=== PATIENT | female | born 1995 | race Caucasian/White ===

== ENCOUNTER 2018-08-18 15:42 | Emergency (ER) | payer OTHER, BC ==
--- NOTE | 2018-08-18 15:49 | UC ---
Abdominal Pain Female HPI - HPI Summary HPI Summary: 22 yo female presents with multiple complaints. She is a PhD student at [employer]. 1) For the past 3 weeks she has been feeling that her heart is beating "harder" intermittently lasting minutes up to an hour at a time. This occurs randomly and at any time of the day. Not worse with activity. No accompanied symptoms such as SOB, pain, headache, or dizziness. 2) This morning she felt some RLQ pain for a couple of hours that has now resolved. She tells me that she has a history of ovarian cysts and is on control for this. She gets her menstrual period monthly, but last month had 7 days of heavy bleeding followed by 1 day of rest followed by 7 more days of heavy bleeding. This has never happened to her before. Has had no bleeding since. 3) Ongoing diarrhea and increased flatulence. She is seeing GI for this and, per pt, they are trying many different treatments with her. She reports no change as of yet. Currently denies headache, dizziness, SOB, chest pain, palpitations, n/v, dysuria, vaginal bleeding or discharge, flank pain, or weakness. She denies anxiety, depression, or increased stress. No SI/HI. No recent travel, personal or fam hx of blood clots. - History of Current Complaint Stated Complaint: HARD HEART BEAT, AND EXCESS GAS PRODUCTION Time Seen by Provider: 08/18/18 15:48 Hx Obtained From: Patient Onset/Duration: Gradual Onset Timing: Intermittent Episodes Lasting: Severity Currently: None Allergies/Adverse Reactions: Allergies Allergy/AdvReac Type Severity Reaction Status Date / Time No Known Allergies Allergy Verified 08/18/18 16:09 Home Medications: Home Medications RiFAXimin* [Xifaxan*] 1 tab PO TID 08/18/18 [History Confirmed 08/18/18] Trilomarzia* 1 tab PO DAILY 08/18/18 [History Confirmed 08/18/18] PMH/Surg Hx/FS Hx/Imm Hx - Additional Past Medical History Additional PMH: IBS - Surgical History Surgical History: None - Family History Known Family History: Positive: Other - Crohn's - Social History Occupation: Student Alcohol Use: None Substance Use Type: None Smoking Status (MU): Never Smoked Tobacco Review of Systems All Other Systems Reviewed And Are Negative: Yes Constitutional: Positive: Negative Skin: Positive: Negative Eyes: Positive: Negative ENT: Positive: Negative Respiratory: Positive: Negative Cardiovascular: Positive: Other - heart beating "harder" Gastrointestinal: Positive: Other - RLQ pain Genitourinary: Positive: Abnormal Bleeding Neurovascular: Positive: Negative Musculoskeletal: Positive: Negative Neurological: Positive: Negative Psychological: Positive: Negative Physical Exam - Summary Physical Exam Summary: GENERAL: NAD. WDWN. No pain distress. SKIN: No rashes, sores, lesions, or open wounds. NECK: Supple. Nontender. No lymphadenopathy. CHEST: CTAB. No r/r/w. No accessory muscle use. Breathing comfortably and in no distress. CV: RRR. Without m/r/g. Pulses intact. Cap refill <2seconds ABDOMEN: Soft. NTTP. No distention or guarding. No organomegaly. No CVA tenderness. Bowel sounds present NEURO: Alert. PSYCH: Age appropriate behavior. Triage Information Reviewed: Yes Vital Signs: Vital Signs: Temp Pulse Resp BP Pulse Ox 98.3 F 56 16 105/67 100 08/18/18 16:03 08/18/18 16:03 08/18/18 16:03 08/18/18 16:03 08/18/18 16:03 Laboratory Tests 08/18/18 08/18/18 16:31 16:33 POC Urine Color Yellow POC Urine Clarity Clear POC Urine pH 7.5 POC Ur Specif [place] 1.020 POC Urine Protein Negative POC Ur Glucose (UA) Negative POC Urine Ketones Negative POC Urine Blood Negative POC Urine Nitrite Negative POC Urine Bilirubin Negative POC Urine Urobilinogen 0.2 POC U Leukocyte Esteras Negative POC Ur Test Negative Vital Signs Reviewed: Yes Abd Pain Female Course/Dx - Course Course Of Treatment: EKG: Sinus john 54bpm. No ST changes as read by Dr. Duckworth. UA and negative. I recommended the pt seek f/u care at [facility] or at [facility] for further evaluation of her ?cardiac symptoms and abnormal vaginal bleeding. I obtained labwork today, but I believe the majority of her symptoms are anxiety/stress related - but pt denies this. If her symptoms worsen or become more persistent - advised to go to the ED for further evaluation. Pt voiced understanding and is agreeable to the plan. - Differential Dx/Diagnosis Provider Diagnosis: Pounding heartbeat, Menorrhagia Discharge - Sign-Out/Discharge Documenting (check all that apply): Patient Departure All imaging exams completed and their final reports reviewed: No Studies - Discharge Plan Condition: Stable Disposition: HOME Referrals: No Primary Care Phys,NOPCP [Primary Care Provider] - [facility] [Outside] - 1 Week Additional Instructions: If you develop a fever, shortness of breath, chest pain, new or worsening symptoms - please call your PCP or go to the ED. Your exam was normal today. We have drawn blood work to further evaluate your symptoms. Please call [facility] at the number below to schedule a follow up appointment next week to review your labwork and to further evaluate your symptoms. - Billing Disposition and Condition Condition: STABLE Disposition: Home
--- OUTSIDE RECORDS SUMMARY | 2018-08-18 15:49 | XMS REPORT | Continuity of Care Document ---
:1995 External Reference #:[id number] Author Name Karlene Ochoa PA-C Address [address] [place] [address] Care Team Providers Name Role Phone Li Poole RPA Care Team Information Spindle Maker Unavailable Li Poole RPA Primary Care Physician Unavailable Payers Type Date Identification Numbers Payment Provider Subscriber Policy Number: [id number] [facility] Renea Armijo PayID: [id number] [address] [place] [address] Policy Number: [id number] [facility] Renea Armijo PayID: [id number] [address] [address] [place] [address] Advance Directives Description No Information Available Problems Date Description Provider Status Onset: 06/29/2018 Flatulence, eructation and gas Karlene Ochoa PA-C Active pain Onset: 06/29/2018 Diarrhea Karlene Ochoa PA-C Active Family History Date Family Member(s) Problem(s) Comments Mother Celiac Disease Social History Type Date Description Comments Sex Unknown Tobacco Use Start: Unknown Patient has never smoked Smoking Status Reviewed: 08/03/18 Patient has never smoked Allergies, Adverse Reactions, Alerts Date Description Reaction Status Severity Comments 06/29/2018 Sulfa Antibiotics Active Medications Medication Date Status Form Strength Qnty SIG Indications Ordering Provider Xifaxan Active Tablets 550mg 42tabs 1 tablet R19.7 Tito 019 by mouth Tonya, DO 3 times daily for 14 days Biq-Ly-Ihtlhe /0 Active Tablets 0.18/0.215/ Unknown 000 0.25 mg-25 mcg Immunizations Description No Information Available Vital Signs Date Vital Result Comment 08/03/2018 8:16am Height 67.75 inches 5'7.75" Weight 128.00 lb BMI (Body Mass Index) 19.6 kg/m2 06/29/2018 2:06pm Height 67.75 inches 5'7.75" Weight 131.00 lb BP Systolic 98 mmHg BP Diastolic 64 mmHg BMI (Body Mass Index) 20.1 kg/m2 Results Test Date Facility Test Result H/L Range Note Laboratory test [facility] Breath Test NEGATIVE finding [address] [place]) [place] [address] [phone] Laboratory test [facility] Stool SEE RESULT 1, 2 finding 8 Culture BELOW C Difficile PCR SEE RESULT BELOW 3 Stool Occult 07/01/2018 [facility] Stool Occult SEE RESULT 4 Blood Diag Blood, Diag BELOW Laboratory test 06/29/2018 [facility] Esr Sedimentation 07 MM 0-20 finding [address] Rate(!) [place] [address] [phone] C-Reative Protein <0.5 <5.0 Celiac 2! 06/29/2018 [facility] [place]oglobulin A (Iga) 143 mg/dL 61 - 356 5 Tissue Transglutamianse Iga AB 1.2 U/mL 6 1 [id number] 2 SEE RESULT BELOW Name: RENEA ARMIJO : [address]: Karlene DELUCA Acct: [id number] Unit: [id number] AGE: 22 Location: [facility] Re07/01/18 SEX: F Status: REG REF SPEC: [id number] PJ: 07/01/18-1430 [facility] DR: Karlene DELUCA REQ: [id number] RECD: 07/01/18 STATUS: RES _ SOURCE: STOOL SPDESC: ORDERED: Occult Bl, Diag, Stool Culture, Fecal Lactoferr, O P: Giar/Crypt COMMENTS: [id number] Procedure Result Reported Site Stool Culture PENDING Stool Specimen Description Final 07/01/18- 2014 ML Stool Color Brown Stool Form Formed Stool Consistency Firm Shiga Toxin 1 2 PENDING Fecal Lactoferrin (Stool WBC) PENDING Stool Occult Blood (1) PENDING O P: Giardia/Cryptospor Screen PENDING * ML - Main Lab . END OF REPORT DEPARTMENT OF PATHOLOGY, [address] [place] [address] Sanjay Amos M.D. Director [facility] # [id number] 3 SEE RESULT BELOW Name: RENEA ARMIJO : [address]: Karlene DELUCA Acct: [id number] Unit: [id number] AGE: 22 Location: [facility] Re07/01/18 SEX: F Status: REG REF SPEC: [id number] PJ: 07/01/180 [facility] DR: Karlene DELUCA REQ: [id number] RECD: 07/01/18 STATUS: RES _ SOURCE: STOOL SPDESC: ORDERED: Occult Bl, Diag/R, C. diff PCR/S, Stool Culture/R, Fecal Lactoferr/ R, O P: Sameer/Crypt/R COMMENTS: [id number] Procedure Result Reported Site Stool Culture PENDING Stool Specimen Description Final 07/01/18- 2014 ML Stool Color Brown Stool Form Formed Stool Consistency Firm Shiga Toxin 1 2 PENDING C. difficile PCR PENDING Fecal Lactoferrin (Stool WBC) PENDING Stool Occult Blood (1) PENDING O P: Giardia/Cryptospor Screen PENDING * ML - Main Lab . END OF REPORT DEPARTMENT OF PATHOLOGY, [address] [place] [address] Sanjay Amos M.D. Director [facility] # [id number] 4 SEE RESULT BELOW Name: RENEA ARMIJO : [address]: Karlene DELUCA Acct: [id number] Unit: [id number] AGE: 22 Location: [facility] Re07/01/18 SEX: F Status: REG REF SPEC: [id number] PJ: 07/01/18-1430 [facility] DR: Karlene DELCUA REQ: [id number] RECD: 07/01/18 STATUS: COMP _ SOURCE: STOOL SPDESC: ORDERED: Occult Bl, Diag, Stool Culture, Fecal Lactoferr, O P: Giar/Crypt COMMENTS: [id number] Verbal to ANGIE HENRY by [id number] at 0920 on 07/04/18. Results read back accurately. Procedure Result Reported Site Stool Culture Final 07/03/18- 1219 ML Result No enteric pathogens isolated Testing for Salmonella, Shigella, Aeromonas, Plesiomonas, Yersinia and Campylobacter are included in a Stool Culture. Vibrio spp not routinely tested for in a stool culture. If testing is desired, please request specifically when placing test order. Sensitivities not routinely performed on stool isolates, as antibiotics may prolong the carriage rate of bacteria. Please contact the microbiology lab if sensitivities are required. Stool Specimen Description Final 07/01/18- 2014 ML Stool Color Brown Stool Form Formed Stool Consistency Firm Shiga Toxin 1 2 Final 07/04/18- 1134 ML Organism 1 Negative Shiga Toxin 1 2 Immunochromatographic Assay CONTINUED ON NEXT PAGE DEPARTMENT OF PATHOLOGY, [address] [place] [address] Sanjay Amos M.D. Director [facility] # [id number] Patient: RENEA ARMIJO [id number] (Continued) Specimen: [id number] Collected: 07/01/18-1429 Received: 07/01/18-1807 (Continued) Procedure Result Reported Site Shiga Toxin 1 2 Final (continued) 07/04/18- 1134 Fecal Lactoferrin (Stool WBC) Final 07/01/18- 2316 ML Fecal Lactoferrin Negative by Immunoassay TEST LIMITATIONS: Assay detects elevated levels of lactoferrin released from fecal leukocytes as a marker of intestinal inflammation. The test may not be appropriate in immunocompromised persons. Fecal samples from breast fed infants should not be used with this assay. Stool Occult Blood (1) Final 07/01/18- 2136 ML Stool Occult Blood Negative Collection Date (1) 07/01/18 O P: Giardia/Cryptospor Screen Final 07/04/18- 1117 ML Organism 1 Neg Cryptosporidium/Giardia Giardia and cryptosporidium antigen testing performed by enzyme immunoassay. If patient is immunocompromised or has traveled to or is from a developing country, a full ova and parasite exam with microscopic (OPMIC) is recommended. All samples will be held 21 days in case full ova and parasite testing is requested. Contact the Microbiology Department at [phone]. TEST LIMITATIONS: As with all diagnostic procedures, the results obtained should be used in conjunction with other clinical information available the physician, including confirmation by another method. Negative results can occur in samples containing antigen below lower limits of detection of the assay. One negative specimen does not rule out the possibility of a parasitic infection. To improve detection it is recommended that three specimens be collected on separate days over a period of not more than seven CONTINUED ON NEXT PAGE DEPARTMENT OF PATHOLOGY, [address] [place] [address] Sanjay Amos M.D. Director [facility] # [id number] Patient: RENEA ARMIJO [id number] (Continued) Specimen: [id number] Collected: 07/01/18-1430 Received: 07/01/18-1807 (Continued) Procedure Result Reported Site O P: Giardia/Cryptospor Screen Final (continued) 07/04/18- 1117 days. The use of colonic washes, aspirates or other diluted sample types has not been established and could affect the performance of the assay. Stool samples contaminated with an oily or particulate base (eg. Barium, mineral oil etc.) could interfere with the test and are not recommended. * ML - [facility] . END OF REPORT DEPARTMENT OF PATHOLOGY, [address] [place] [address] Sanjay Amos M.D. Director [facility] # [id number] 5 Test Performed by: [facility] - [address] [address] 6 REFERENCE VALUE <4.0 (Negative) Test Performed by: [facility] - [address] [address] Procedures Date Code Description Status 07/18/2018 [address] Breath Hydrogen Completed Encounters Type Date Location Provider Dx Diagnosis Office Visit 06/29/2018 [facility] Karlene Murillo R19.7 Diarrhea, 2:[facility]-C unspecified R14.3 Flatulence R14.0 Abdominal distension (gaseous) Plan of Treatment 08/03/2018 - GEORGES ContrerasCR19.7 Diarrhea, unspecifiedNew Medication :Xifaxan 550 mg - 1 tablet by mouth 3 times daily for 14 daysR14.0 Abdominal distension (gaseous)
[2018-08-18 16:07] VITALS: BP 105/67
[2018-08-18] MEDS ORDERED: Lidocaine 1%* 5 ML VIAL INJ ONE (16:52)
[2018-08-18 18:59] LABS: ABS Basophils 0 10^3/ul (0-0.2); ABS Eosinophils 0.4 10^3/ul (0-0.6); ABS Lymphocytes 1.6 10^3/ul (1.0-4.8); ABS Monocytes 0.4 10^3/ul (0-0.8); ABS Neutrophils 3.2 10^3/ul (1.5-7.7); ABS Nucleated RBC 0 10^3/ul; Eosinophil % 6.5 %; Hematocrit 41 % (35-47); Hemoglobin 13.7 g/dl (12.0-16.0); Lymphocyte % 28.5 %; Mean Corpuscular HGB Conc 34 g/dl (31-36); Mean Corpuscular Hemoglobin 30 pg (27-31); Mean Corpuscular Volume 90 fL (80-97); Mean Platelet Volume 9.4 fL (7.4-10.4); Nucleated Red Blood Cells % 0; Platelet Count 211 10^3/ul (150-450); Red Cell Distribution Width 13 % (10.5-15); White Blood Count 5.5 10^3/ul (3.5-10.8)
[2018-08-20 07:01] LABS: Calcium 10.1 mg/dL (8.6-10.3); Magnesium 2.5 mg/dL (1.9-2.7); Total Bilirubin 0.5 mg/dL (0.2-1.0)
[2018-08-20 07:07] LABS: Albumin/Globulin Ratio 1.6 (1-3); BUN/Creatinine Ratio 25.5 (8-20); EGFR Non-African American 70.3 (>60); Globulin 3.1 g/dL (2-4); Total Protein 8.1 g/dL (6.4-8.9)
[2018-08-21 16:52] LABS: Lyme Disease Serology Positive (Negative)
[2018-08-22 16:42] LABS: Lyme Disease IgG Ab WB Negative (Negative); Lyme Disease IgG Bands Present p66 kDa
== END 2018-08-18 16:50 | disposition home or self-care (01) ==
LOC: UCEAST 15:42
DX: I49.9 Cardiac arrhythmia, unspecified (principal); N92.0 Excessive and frequent menstruation with regular cycle
CPT/HCPCS: 36415; 80053; 81003; 83735; 84443; 84702; 85025; 86617; 86618; 99211; G0463

== ENCOUNTER 2018-11-28 12:30 | Emergency (ER) | payer OTHER, BC ==
--- OUTSIDE RECORDS SUMMARY | 2018-11-28 12:35 | XMS REPORT | Continuity of Care Document ---
:1995 External Reference #:[id number] Author Name Karlene Ochoa PA-C Address [address] [place] [address] Care Team Providers Name Role Phone Li Poole RPA Care Team Information Dental Chair Assembler Unavailable Li Poole RPA Primary Care Physician Unavailable Payers Date Identification Numbers Payment Provider Subscriber Policy Number: [id number] [facility] Renea Armijo PayID: [id number] [address] [place] [address] Policy Number: [id number] [facility] BULL Barnardana Armijo PayID: [id number] [address] [address] [place] [address] Advance Directives Description No Information Available Problems Active Problems Provider Date Diarrhea Karlene Ochoa PA-C Onset: 06/29/2018 Flatulence, eructation and gas pain Karlene Ochoa PA-C Onset: 2017 Family History Date Family Member(s) Observation Comments Mother Celiac Disease Social History Type Date Description Comments Sex Unknown Tobacco Use Start: Unknown Patient has never smoked Smoking Status Reviewed: 10/17/18 Patient has never smoked Allergies, Adverse Reactions, Alerts Active Allergies Reaction Severity Comments Date Sulfa Antibiotics 06/29/2018 Medications Active Medications SIG Qnty Indications Ordering Provider Date Lillow Unknown 0.15-30mg-mcg Tablets History Medications Colyte With by mouth as 4000ml Torrie Daly, 08/19/2018 - Flavor Packs directed 10/17/2018 240gm Solution Rec Xifaxan 1 tablet by mouth 42tabs R19.7 Tito Castaneda, 08/03/2018 - 550mg 3 times daily for 10/17/2018 Tablets 14 days [id number]-[id number] Unknown - 10/17/2018 0.18/0.215/0.25 mg-25 mcg Tablets Immunizations Description No Information Available Vital Signs Date Vital Result Comment 10/17/2018 9:12am Height 67.75 inches 5'7.75" Weight 128.00 lb BMI (Body Mass Index) 19.6 kg/m2 08/03/2018 8:16am Height 67.75 inches 5'7.75" Weight 128.00 lb BMI (Body Mass Index) 19.6 kg/m2 06/29/2018 2:06pm Height 67.75 inches 5'7.75" Weight 131.00 lb BP Systolic 98 mmHg BP Diastolic 64 mmHg BMI (Body Mass Index) 20.1 kg/m2 Results Test Date Facility Test Result H/L Range Note Laboratory test [facility] Breath Test NEGATIVE finding [address] [place] [address] ([facility]) [phone] Laboratory test [facility] Breath Test NEGATIVE Neg finding [address] [facility] [place] [address] ([facility]) [phone] Laboratory test [facility] Clotest SEE RESULT 1, 2 finding 9 BELOW Laboratory test [facility] Surgical SEE RESULT 3, 4 finding 9 Interface BELOW Order Laboratory test [facility] Breath Test NEGATIVE finding [address] [place] [facility] Sbbo (Gai) [place], [place] [address] [phone] Laboratory test [facility] Stool Culture SEE RESULT 5, 6 finding 8 BELOW C Difficile PCR SEE RESULT BELOW 7 Stool Occult 07/01/2018 [facility] Stool Occult SEE RESULT 8 Blood Diag Blood, Diag BELOW Laboratory test 06/29/2018 [facility] Esr Sedimentation 07 MM 0-[address] Rate(!) [place], [place] [id number] [phone] C-Reative Protein <0.5 <5.0 Celiac 2! 06/29/2018 [facility] Immunoglobulin A (Iga) 143 mg/dL 61 - 356 9 Tissue Transglutamianse Iga AB 1.2 U/mL 10 1 [id number] SEE RESULT BELOW Name: RENEA ARMIJO : [address]: Torrie Daly MD Acct: [id number] Unit: [id number] AGE: 22 Location: [facility] Re09/15/18 SEX: F Status: DEP REF SPEC: [id number] PJ: 09/15/18-[address]: Torrie Nava MD REQ: [id number] RECD: 09/15/18 STATUS: JAMAR JULIAN DR: [facility] _ SOURCE: GAS ANTRUM SPDESC: ORDERED: Clotest COMMENTS: [id number] Procedure Result Reported Site Clotest Final 09/16/18- 741 ML Clotest Negative * ML - Main Lab . END OF REPORT DEPARTMENT OF PATHOLOGY, [address] [place] [address] Sanjay Amos M.D. Director [facility] # [id number] 3 [id number] SEE RESULT BELOW Name: RENEA ARMIJO : [address]: Torrie Daly MD Acct: [id number] Unit: [id number] AGE: 22 Location: [facility] Re09/15/18 SEX: F Status: DEP REF SPEC: [id number] PJ: 09/15/18-[address]: Torrie Nava MD REQ: [id number] RECD: 09/15/18 STATUS: GREGORIO JULIAN DR: Crystal L Poole, RPA-C _ ORDERED: LEVEL 4/3 COMMENTS: [id number] FINAL DIAGNOSIS 1. Duodenum, biopsy: -- Benign small intestinal mucosa with no significant pathologic abnormalities. -- No evidence of villous blunting or increased intraepithelial lymphocytes. 2. Gastroesophageal junction, biopsy: -- Benign columnar-type mucosa with chronic inflammation. -- Intestinal metaplasia is absent. -- Dysplasia is absent. 3. Colon, random, biopsy: -- Benign colonic mucosa with no significant pathologic abnormalities. -- No evidence of microscopic colitis. CLINICAL HISTORY Diarrhea POST-OPERATIVE DIAGNOSIS EGD: esophagus - normal, tubular esophagus; mildly irregular gastroesophageal junction at 36 cm with focal erythema - biopsy; normal stomach, ROSALINDA test; duodenum normal, biopsy; colonoscopy: to terminal ileum; good prep; normal; random biopsy CONTINUED ON NEXT PAGE DEPARTMENT OF PATHOLOGY, [address] [place] [address] Sanjay Amos M.D. Director [facility] # [id number] RUN DATE: 09/16/18 [facility] LAB LIVE PAGE 2 Patient: RENEA ARMIJO [id number] (Continued) GROSS DESCRIPTION (Continued) GROSS DESCRIPTION 1. The specimen is received in formalin labeled, Duodenal Biopsies, and consists of a 0.7 x 0.5 x 0.2 cm aggregate of cobos-pink irregular soft tissue fragments which is submitted entirely in one cassette. 2. The specimen is received in formalin labeled, GE Junction Biopsies, and consists of a 0.5 x 0.3 x 0.1 cm cobos-pink irregular soft tissue fragment which is submitted entirely in one cassette. 3. The specimen is received in formalin labeled, Random Colon Biopsies, and consists of a 0.7 x 0.5 x 0.2 cm aggregate of cobos-pink irregular soft tissue fragments which is submitted entirely in one cassette. Signed by and Reported on: Stephania Benitez MD 09/16/18 1205 END OF REPORT DEPARTMENT OF PATHOLOGY, [address] [place] [address] Sanjay Amos M.D. Director [facility] # [id number] 5 [id number] 6 SEE RESULT BELOW Name: RENEA ARMIJO : [address]: Karlene DELUCA Acct: [id number] Unit: [id number] AGE: 22 Location: [facility] Re07/01/18 SEX: F Status: REG REF SPEC: [id number] PJ: 07/01/18-[address] [facility] [address]: Karlene DELUCA REQ: [id number] RECD: 07/01/18 STATUS: RES _ SOURCE: STOOL SPDESC: ORDERED: Occult Bl, Diag, Stool Culture, Fecal Lactoferr, O P: Giar/Crypt COMMENTS: [id number] Procedure Result Reported Site Stool Culture PENDING Stool Specimen Description Final 07/01/18- 2014 ML Stool Color Brown Stool Form Formed Stool Consistency Firm Shiga Toxin 1 2 PENDING Fecal Lactoferrin (Stool WBC) PENDING Stool Occult Blood (1) PENDING O P: Giardia/Cryptospor Screen PENDING * ML - Main Lab . END OF REPORT DEPARTMENT OF PATHOLOGY, [address] [place] [address] Sanjay Amos M.D. Director [facility] # [id number] 7 SEE RESULT BELOW Name: RENEA ARMIJO : [address]: Karlene DELUCA Acct: [id number] Unit: [id number] AGE: 22 Location: [facility] Re07/01/18 SEX: F Status: REG REF SPEC: [id number] PJ: 07/01/18-[address] [facility] [address]: Karlene DELUCA REQ: [id number] RECD: 07/01/18 STATUS: RES _ SOURCE: STOOL SPDESC: ORDERED: Occult Bl, Diag/R, C. diff PCR/S, Stool Culture/R, Fecal Lactoferr/ R, O P: Giar/Crypt/R COMMENTS: [id number] Procedure Result Reported Site Stool Culture PENDING Stool Specimen Description Final 07/01/18- 2014 ML Stool Color Brown Stool Form Formed Stool Consistency Firm Shiga Toxin 1 2 PENDING C. difficile PCR PENDING Fecal Lactoferrin (Stool WBC) PENDING Stool Occult Blood (1) PENDING O P: Giardia/Cryptospor Screen PENDING * ML - Main Lab . END OF REPORT DEPARTMENT OF PATHOLOGY, [address] [place] [address] Sanjay Amos M.D. Director [facility] # [id number] 8 SEE RESULT BELOW Name: RENEA ARMIJO : [address]: Karlene DELUCA Acct: [id number] Unit: [id number] AGE: 22 Location: [facility] Re07/01/18 SEX: F Status: REG REF SPEC: [id number] PJ: 07/01/18-[address] [facility] [address]: Karlene DELUCA REQ: [id number] RECD: 07/01/18 STATUS: COMP _ SOURCE: STOOL SPDESC: ORDERED: Occult Bl, Diag, Stool Culture, Fecal Lactoferr, O P: Giar/Crypt COMMENTS: [id number] Verbal to ANGIE HENRY by [id number] at 0920 on 07/04/18. Results read back [...] are required. Stool Specimen Description Final 07/01/18- 2015 ML Stool Color Brown Stool Form Formed Stool Consistency Firm Shiga Toxin 1 2 Final 07/04/18- 1134 ML Organism 1 Negative Shiga Toxin 1 2 Immunochromatographic Assay CONTINUED ON NEXT PAGE DEPARTMENT OF PATHOLOGY, [address] [place] [address] Sanjay Amos M.D. Director [facility] # [id number] Patient: RENEA ARMIJO [id number] (Continued) Specimen: [id number] Collected: 07/01/18 Received: 07/01/18 (Continued) Procedure Result Reported Site Shiga Toxin [...] is requested. Contact the Microbiology Department at [phone]. TEST LIMITATIONS: As with all diagnostic procedures, [...] CONTINUED ON NEXT PAGE DEPARTMENT OF PATHOLOGY, [address] [place] [address] Sanjay Amos M.D. Director [facility] # [id number] Patient: RENEA ARMIJO [id number] (Continued) Specimen: [id number] Collected: 07/01/18-1429 Received: 07/01/18 (Continued) Procedure Result Reported Site O P: Giardia/Cryptospor Screen Final (continued) 07/04/18- 1117 days. The use of colonic washes, aspirates or other diluted sample types has not been established and could affect the performance of the assay. Stool samples contaminated with an oily or particulate base (eg. Barium, mineral oil etc.) could interfere with the test and are not recommended. * - Main Lab . END OF REPORT DEPARTMENT OF PATHOLOGY, [address] [place] [address] Sanjay Amos M.D. Director [facility] # [id number] 9 Test Performed by: [facility] [address] [place] [address] 10 REFERENCE VALUE <4.0 (Negative) Test Performed by: [facility] [address] [place] [address] Procedures Date Code Description Status 11/09/2018 28495 Breath Hydrogen Completed 10/26/2018 46756 Breath Hydrogen Completed 09/15/2018 92475 Moderate Sedation Services; Same Phys Each Additional 15 Completed Mins 09/15/2018 68444 Moderate Sedation Services; Same Phys Each Additional 15 Completed Mins 09/15/2018 17404 Moderate Sedation Services; Same Phys Intl 15 Mins; PT >=5 Completed Years 09/15/2018 62970 Colonscopy+Biopsy Completed 09/15/2018 23060 EGD+Biopsy Single Or Multiple Completed 07/18/2018 11012 Breath Hydrogen Completed Encounters Type Date Location Provider Dx Diagnosis Office Visit 10/17/2018 [facility] R14.3 Flatulence 9:[facility]a [facility] R14.0 Abdominal distension (gaseous) R19.7 Diarrhea, unspecified Office Visit 08/03/2018 [facility]illo R19.7 Diarrhea, 8:15a [facility] unspecified R14.0 Abdominal distension (gaseous) Office Visit 06/29/2018 [facility] R19.7 Diarrhea, 2:00p [facility] unspecified R14.3 Flatulence R14.0 Abdominal distension (gaseous) Plan of Treatment No Information Available
[2018-11-28 13:26] VITALS: BP 96/64
--- NOTE | 2018-11-28 13:50 | UC ---
Skin Complaint HPI - HPI Summary HPI Summary: 23 year old female placed on augmentin for URI 9 days ago, started on Sertaline 5 days ago presents with lacy rash over b/l feet, hands, sternum and b/l hips. No prior reactions. Denies itching, painful, fever, chills. + fatigue, however insomnia with sertaline. no decreased breathing, shortness of breath , throat swelling noted. - History of Current Complaint Chief Complaint: UCRash Time Seen by Provider: 11/28/18 13:29 Stated Complaint: RASH Hx Obtained From: Patient Hx Last Menstrual Period: 10/30/18 ?: No Onset/Duration: Sudden Onset, Lasting Hours Skin Exposure Onset/Duration: Hours Ago Timing: Constant Current Severity: None Pain Intensity: 0 Pain Scale Used: 0-10 Numeric Location: Diffuse - Allergy/Home Medications Allergies/Adverse Reactions: Allergies Allergy/AdvReac Type Severity Reaction Status Date / Time Sulfa (Sulfonamide Allergy Unknown Verified 11/28/18 13:26 Antibiotics) Reaction Details Home Medications: Home Medications Sertraline* [Zoloft*] 25 mg PO DAILY 11/28/18 [History Confirmed 11/28/18] PMH/Surg Hx/FS Hx/Imm Hx Previously Healthy: Yes - Surgical History Surgical History: None Surgery Procedure, Year, and Place: wisdom teeth extraction 06/19 - Family History Known Family History: Positive: Other - Crohn's - Social History Alcohol Use: None Substance Use Type: None Smoking Status (MU): Never Smoked Tobacco Review of Systems All Other Systems Reviewed And Are Negative: Yes Skin: Positive: Rash Is Patient Immunocompromised?: No Physical Exam Triage Information Reviewed: Yes Appearance: Well-Appearing, No Pain Distress, Well-Nourished, Thin Vital Signs: Initial Vital Signs Temp 99.7 F 11/28/18 13:20 Pulse 66 11/28/18 13:20 Resp 18 11/28/18 13:20 BP 96/64 11/28/18 13:20 Pulse Ox 98 11/28/18 13:20 Vital Signs Reviewed: Yes Eyes: Positive: Conjunctiva Clear ENT: Positive: Hearing grossly normal, Pharynx normal, Uvula midline. Negative : TMs normal Neck: Positive: Supple. Negative: Nuchal Rigidity, Enlarged Nodes @ Respiratory: Positive: Chest non-tender Musculoskeletal: Positive: Strength Intact, ROM Intact Neurological Exam: Normal Psychological Exam: Normal Skin: Positive: Rashes, Other - lacy mild erythematous rash, non-palpable over back, b/l tops of feet, and sternal region, b/l hips, worse n hips, back. no excoriations. Course/Dx - Course Course Of Treatment: Likely allergic reaction, patient would like to continue sertaline, continue benadryl, d/c augmentin, continue t omonitor, told to go to ER with increased symptoms, SOB, throat/ facial swelling. increase fluids - Diagnoses Provider Diagnosis: Urticaria Discharge - Sign-Out/Discharge Documenting (check all that apply): Patient Departure All imaging exams completed and their final reports reviewed: No Studies - Discharge Plan Condition: Good Disposition: HOME Prescriptions: diphenhydrAMINE HCl [Benadryl] 25 mg PO Q8H #30 capsule Patient Education Materials: Urticaria (ED) Referrals: No Primary Care Phys,NOPCP [Primary Care Provider] - Additional Instructions: - Continue Benadryl as needed for rash - Stop Augmentin. Continue SErtaline - Go to ER with throat symptoms, decreased breathing/ shortness of breath, facial/ throat swelling - Continue to monitor rash- if no improvement within 2-3 days, follow up with primary - Over the counter hydrocoritsone cream if needed for rash - Billing Disposition and Condition Condition: GOOD Disposition: Home
== END 2018-11-28 13:58 | disposition home or self-care (01) ==
LOC: UCEAST 12:30
DX: L50.9 Urticaria, unspecified (principal); R53.83 Other fatigue; G47.00 Insomnia, unspecified; Z88.2 Allergy status to sulfonamides
CPT/HCPCS: 99212; G0463

== ENCOUNTER 2019-01-06 08:14 | Emergency (ER) | payer OTHER, BC ==
--- OUTSIDE RECORDS SUMMARY | 2019-01-06 08:18 | XMS REPORT | Continuity of Care Document ---
:1995 External Reference #:[id number] Author Name Jumana Pagan O.D. Address [address] [place] [address] Care Team Providers Name Role Phone Jumana Pagan O.D. Care Team Information Judge Unavailable Payers Date Identification Numbers Payment Provider Subscriber Policy Number: [id number] [facility] Briana Madison PayID: [id number] [address] [place] [id number] Problems Active Problems Provider Date Vitreous degeneration Jumana Pagan O.D. Onset: 04/08/2018 Hypermetropia Jumana Pagan O.D. Onset: 01/05/2019 Family History Date Family Member(s) Observation Comments Father No Current Problems Mother Retinal Tear Social History Type Date Description Comments Sex Unknown Marital Status Single Occupation Student Work Status Student, Not Employed ETOH Use Denies alcohol use Tobacco Use Start: Unknown Patient has never smoked Smoking Status Reviewed: 01/05/19 Patient has never smoked Allergies, Adverse Reactions, Alerts Active Allergies Reaction Severity Comments Date Sulfa Antibiotics 04/08/2018 Augmentin 01/05/2019 Medications Active Medications SIG Qnty Indications Ordering Provider Date Rvq-Ha-Ngbolu Unknown 0.18/0.215/0.25 mg-25 mcg Tablets Sertraline HCL Daily Unknown 50mg Tablets Procedures Date Code Description Status 05/20/2018 46203 Est Patient Intermediate Exam Completed 04/08/2018 33140 New Patient Comprehensive Exam Completed Plan of Treatment 01/05/2019 - Jumana Pagan O.D.H52.02 Hypermetropia, left eyeComments:Smoking can increase the risk of developing or worsening any eye related disease, as well as affect your overall health. If you are a smoker, we strongly recommend that you quit.If you are not a smoker, we strongly recommend that you do not start. You have Hyperopia, or far sightedness, I have givenyou a prescription for glasses and contactsFollow up:1 year You can expect to have your eyes dilated at your next visit. If Dr. Pagan orders any additional testing, it may require extra time. We recommend that you bring sunglasses, as dilation drops often make you light sensitive until they wear off. We always recommend you bring someone to drive you home if you are uncomfortable driving with your eyes dilated. If you have any questions before your next visit, feel free to call our office at .
[2019-01-06 08:25] VITALS: BP 99/70
[2019-01-06] MEDS ORDERED: Tetan/Diph/Pertus SYR(Tdap)* 0.5 ML SYR(BOOSTRIX) use SYR IM ONE (09:32)
--- NOTE | 2019-01-06 09:37 | UC ---
Hip/Pelvis Pain - HPI Summary HPI Summary: 10 PM LAST NIGHT WAS WALKING HER DOG WHEN HE PULLED ON THE LEASH AND PATIENT WAS PULLED TO THE GROUND. STRUCK CONCRETE WITH HER RIGHT HIP AND ARM. HAS SOME ABRASIONS. IS CONCERNED ABOUT BONY INJURY TO HER RIGHT HIP. UNKNOWN DATE OF LAST TETANUS. NO HEAD INJURY OR LOC. - History Of Current Complaint Chief Complaint: UCLowerExtremity Stated Complaint: R HIP INJURY Time Seen by Provider: 01/06/19 08:23 Hx Obtained From: Patient Hx Last Menstrual Period: 12/25/18 Onset/Duration: Sudden Onset, Lasting Hours, Still Present Timing: Constant Severity Initially: Moderate Severity Currently: Moderate Pain Intensity: 4 Pain Scale Used: 0-10 Numeric Character Of Pain: Sharp Aggravating Factor(s): Movement Alleviating Factor(s): Nothing Associated Signs And Symptoms: Positive: Other. Negative: Swelling, Abdominal Pain - Allergies/Home Medications Allergies/Adverse Reactions: Allergies Allergy/AdvReac Type Severity Reaction Status Date / Time amoxicillin [From Augmentin] Allergy Rash Verified 01/06/19 08:23 clavulanic acid Allergy Rash Verified 01/06/19 08:23 [From Augmentin] Sulfa (Sulfonamide Allergy Unknown Verified 01/06/19 08:23 Antibiotics) Reaction Details Home Medications: Home Medications Norgestimate-Ethinyl Estradiol [Xht-Sp-Kzbsbq Tablet] 1 tab PO DAILY 01/06/19 [ History Confirmed 01/06/19] PMH/Surg Hx/FS Hx/Imm Hx Other GI/ History: IBS Psychological History: Depression - Surgical History Surgical History: Yes Surgery Procedure, Year, and Place: wisdom teeth extraction 06/19 - Family History Known Family History: Positive: Other - Crohn's - Social History Alcohol Use: None Substance Use Type: None Smoking Status (MU): Never Smoked Tobacco Review of Systems All Other Systems Reviewed And Are Negative: Yes Constitutional: Positive: Negative Skin: Positive: Other - ABRASIONS Respiratory: Positive: Negative Cardiovascular: Positive: Negative Gastrointestinal: Positive: Negative Musculoskeletal: Positive: Arthralgia, Decreased ROM Physical Exam Triage Information Reviewed: Yes Appearance: Well-Appearing, No Pain Distress, Well-Nourished Vital Signs: Initial Vital Signs Temp 97.7 F 01/06/19 08:18 Pulse 69 01/06/19 08:18 Resp 18 01/06/19 08:18 BP 99/70 01/06/19 08:18 Pulse Ox 100 01/06/19 08:18 Vital Signs Reviewed: Yes Eyes: Positive: Conjunctiva Clear ENT: Positive: Hearing grossly normal Neck: Positive: Supple Respiratory: Positive: No respiratory distress, No accessory muscle use Cardiovascular: Positive: Pulses Normal Abdomen Description: Positive: Soft, Other: - MILDLY TENDER RLQ. NO REBOUND OR RIGIDITY. NO MASS. Negative: CVA Tenderness (R), CVA Tenderness (L), Distended , Guarding Musculoskeletal: Positive: No Edema Neurological: Positive: Alert Psychological: Positive: Age Appropriate Behavior Skin: Positive: Other - NO BRUISING. SPFL ABRASION RIGHT HIP AND RIGHT FOREARM. Diagnostics - Radiology RIGHT HIP XRAYS Radiology Interpretation Completed By: Radiologist Summary of Radiographic Findings: NO RADIOGRAPHIC EVIDENCE FOR HIP FRACTURE Hip Injury Course/Dx - Course Course Of Treatment: RIGHT HIP X-RAY TODAY NEGATIVE FOR ANY BONY INJURY. HAVE ADVISED FOLLOW-UP WITH HER PCP OR ORTHOPEDICS IF HER PAIN IS PERSISTENT SHE MAY BENEFIT FROM MORE ADVANCED IMAGING AT THAT TIME. OTC MEDICATIONS NEEDED FOR DISCOMFORT. TDAP BOOSTED TODAY GIVEN HER MULTIPLE ABRASIONS. - Differential Dx/Diagnosis Provider Diagnosis: Contusion of right hip, Abrasions of multiple sites Discharge - Sign-Out/Discharge Documenting (check all that apply): Patient Departure All imaging exams completed and their final reports reviewed: Yes - Discharge Plan Condition: Stable Disposition: HOME Patient Education Materials: Abrasion (ED), Hip Contusion (ED) Referrals: [facility] [Outside] - If Needed Radha Zambrano MD [Medical Doctor] - If Needed Additional Instructions: HIP X-RAYS TODAY NEGATIVE FOR ANY BONY INJURY. TAKE OTC MEDICATION NEEDED FOR DISCOMFORT. BE SURE TO GO THROUGH SLOW RANGE OF MOTION EXERCISES DAILY TO PREVENT STIFFENING UP AND MAKING THE DISCOMFORT WORSE. SHOULD YOUR PAIN WORSEN OR NOT IMPROVE OVER THE NEXT FEW DAYS FOLLOW-UP WITH ORTHOPEDICS FOR FURTHER EVALUATION. GO TO THE ER WITHOUT FAIL IF YOU DEVELOP WORSENING ABDOMINAL PAIN, RIGID ABDOMEN , BRUISING, BLOOD IN THE URINE, FEVER OR ANY OTHER CONCERNING SYMPTOMS. COVER YOUR ABRASIONS WITH A THIN LAYER OF BACITRACIN ANTIBIOTIC OINTMENT. TETANUS IMMUNIZATION GIVEN (TDAP): You have been given an immunization against tetanus. Please record this in your records. In general, a booster is needed only once every 10 years. The tetanus shot protects against tetanus or "lockjaw," which is a complication of certain wound infections (the tetanus shot cannot protect against the actual infection). The immunization site may become warm and red due to local reaction. If this occurs, apply warm compresses and take aspirin or ibuprofen to reduce inflammation and discomfort. Return for evaluation if the reaction becomes severe. - Billing Disposition and Condition Condition: STABLE Disposition: Home
== END 2019-01-06 09:53 | disposition home or self-care (01) ==
LOC: UCEAST 08:14
DX: S70.01XA Contusion of right hip, initial encounter (principal); S70.211A Abrasion, right hip, initial encounter; S50.811A Abrasion of right forearm, initial encounter; W18.30XA Fall on same level, unspecified, initial encounter; Y93.K1 Activity, walking an animal; Y92.480 Sidewalk as the place of occurrence of the external cause; Z23 Encounter for immunization; Z88.1 Allergy status to other antibiotic agents; Z88.0 Allergy status to penicillin; Z88.2 Allergy status to sulfonamides
CPT/HCPCS: 90471; 90715; 99211; G0463